=== PATIENT | female | born 1960 | race Caucasian/White ===

== ENCOUNTER → 2016-12-22 | Outpatient (CLI) | payer OTHER | END | disposition home or self-care (01) | LOC: WOUND 09:31 | PROVIDERS: ATTEND Podiatrist Foot & Ankle Surgery | DX: S91.105A Unspecified open wound of left lesser toe(s) without damage to nail, initial encounter (principal); T69.1XXA Chilblains, initial encounter; Z87.891 Personal history of nicotine dependence; Z85.3 Personal history of malignant neoplasm of breast; Z72.89 Other problems related to lifestyle; X31.XXXA Exposure to excessive natural cold, initial encounter; X58.XXXA Exposure to other specified factors, initial encounter; Y93.89 Activity, other specified; Y92.89 Other specified places as the place of occurrence of the external cause; Y99.8 Other external cause status | CPT/HCPCS: 99204 ==

== ENCOUNTER → 2017-01-05 | Outpatient (CLI) | payer OTHER | END | disposition home or self-care (01) | LOC: WOUND 09:32 | PROVIDERS: ATTEND Podiatrist Foot & Ankle Surgery | DX: T69.1XXD Chilblains, subsequent encounter (principal); M79.672 Pain in left foot; Z85.3 Personal history of malignant neoplasm of breast; Z87.891 Personal history of nicotine dependence; Z72.89 Other problems related to lifestyle; X31.XXXD Exposure to excessive natural cold, subsequent encounter | CPT/HCPCS: 99213 ==

== ENCOUNTER 2019-03-02 12:46 | Inpatient (IN) | payer OTHER ==
[~2019-03-02] VITALS: Ht 165.1 cm; Wt 95.2 kg
[2019-03-02] MEDS ORDERED: SODIUM CHLORIDE FLUSH 10ML SYR IVF ONE (13:00)
[2019-03-02 13:47] LABS: BASOPHILS % (AUTO) 0 % (0-1); EOSINOPHILS # (AUTO) 0.04 x10^3/uL (0-0.4); EOSINOPHILS % (AUTO) 1 % (1-7); LYMPHOCYTES # (AUTO) 1.09 x10^3/uL (1-3.4); LYMPHOCYTES % (AUTO) 15 % (22-44); MD NO; MEAN CORPUSCULAR HEMOGLOBIN 30.2 pg (27.0-34.8); MEAN CORPUSCULAR HGB CONC 32.8 g/dL (32.4-35.8); MEAN CORPUSCULAR VOLUME 92.1 fL (80-100); MEAN PLATELET VOLUME 7.3 fL (7.4-10.4); MONOCYTES # (AUTO) 0.34 x10^3/uL (0.2-0.8); MONOCYTES % (AUTO) 5 % (2-9); NEUTROPHILS # (AUTO) 5.77 x10^3/uL (1.8-6.8); NEUTROPHILS % (AUTO) 80 % (42-75); PLATELET COUNT 134 x10^3/uL (130-400); RED BLOOD COUNT 4.44 x10^6/uL (3.82-5.3)
[2019-03-02 14:00] LABS: ALANINE AMINOTRANSFERASE 98 U/L (12-78); ALBUMIN 3.9 g/dL (3.4-5.0); ANION GAP 5 mmol/L (5-15); CHLORIDE 99 mmol/L (98-107); CREATININE 0.61 mg/dL (0.55-1.02)
[2019-03-02 14:02] LABS: ALKALINE PHOSPHATASE 59 U/L (45-117); BILIRUBIN,TOTAL 1.5 mg/dL (0.2-1.0); TOTAL PROTEIN 7.4 g/dL (6.4-8.2)
--- NOTE | 2019-03-02 14:17 | NUR ---
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
[2019-03-02] MEDS ORDERED: KETOROLAC 30 MG/1 ML ONE (14:48)
--- NOTE | 2019-03-02 14:57 | NUR ---
PATIENT PRESENTS TO ED TODAY FOR CAT BITE TO LT HAND 3 DAYS AGO, ERYTHEMA STREAKS RADIATING UP PATIENTS LT UPPER EXT. IV ESTABLISHED, PAIN MEDICATIONS GIVEN, XRAY COMPLETED, AWAITING RESULTS, CALL LIGHT WITHIN REACH, NADN.
[2019-03-02] MEDS ORDERED: KETOROLAC 30 MG/1 ML IVPush ONE (15:00)
--- NOTE | 2019-03-02 15:17 | NUR ---
EMT COMPLETED VOLAR SPLINT, COST ACCOUNTANT INTACT, PATIENT SITTING IN [facility], AWAITING ADMIT ORDER AND BED ASSIGNMENT.
[2019-03-02] MEDS ORDERED: VANCOMYCIN PER PHARMACY MC PRN (15:30)
[2019-03-02] MEDS ORDERED: DOXYCYCLINE 100 MG in DEXTROSE 5% 250 ML IV SCH (15:30)
--- NOTE | 2019-03-02 15:56 | NUR ---
PATIENT SITTING COMFROTABLY IN [facility], UPDATED IN CHART, BLOOD CULTURES DRAWN X 2 PRIOR TO ABX ADMINISTRATION, 1ST ABX ADMINISTERED AT THIS TIME, NADN. ADMIT ORDER IN, AWAITING MED ASSIGNMENT, CALL LIGHT WITHIN REACH.
[2019-03-02] MEDS ORDERED: VANCOMYCIN 2,000 MG in SODIUM CHLORIDE 0.9% 500 ML IV ONE (16:00)
[2019-03-02] MEDS ORDERED: PHARMACOKINETIC CONSULTATION MC ONE (16:00)
[2019-03-02] MEDS ORDERED: PHARMACOKINETIC MONITORING MC PRN (16:00)
--- NOTE | 2019-03-02 16:21 | NUR ---
REPORT TO HEIDY SMITH. AWAITING TRANSPORT.
--- NOTE | 2019-03-02 16:44 | NUR ---
PATIENT BEING TRANSPORTED/ADMITTED TO HOSPITAL BED UPSTAIRS AT THIS TIME.
[2019-03-02] MEDS ORDERED: ACETAMINOPHEN 325 MG TABLET PO PRN (17:30)
[2019-03-02] MEDS ORDERED: METF-649 PO (17:35)
[2019-03-02] MEDS ORDERED: ZOLP5TAB6 PO (17:35)
[2019-03-02] MEDS ORDERED: CITA20TA6 PO (17:35)
[2019-03-02] MEDS ORDERED: ATOR20TA86 PO (17:35)
[2019-03-02 18:06] LABS: HCT (SEDRATE) 40.9 % (34.6-47.8)
[2019-03-02] MEDS: SODIUM CHLORIDE 0.9% 1,000 ML IV SCH ×2 (19:30→20:30)
[2019-03-02] MEDS: morphine SULFATE 10 MG/ML, 1ML IVPush PRN ×2 (19:31→20:33)
[2019-03-02] MEDS: AMPICILLIN/SULBACTAM 3 GM in SODIUM CHLORIDE 0.9% 100 ML IV SCH ×2 (19:33→20:34)
[2019-03-02] MEDS: ATORVASTATIN 40 MG TABLET PO SCH (20:33)
[2019-03-02 21:19] VITALS: BP 143/86
[2019-03-03 01:26] VITALS: BP 122/83
[2019-03-03] MEDS: AMPICILLIN/SULBACTAM 3 GM in SODIUM CHLORIDE 0.9% 100 ML IV SCH ×4 (01:33→19:27)
[2019-03-03] MEDS: SODIUM CHLORIDE 0.9% 1,000 ML IV SCH ×3 (03:45→22:14)
[2019-03-03 05:23] LABS: BASOPHILS # (AUTO) 0.01 x10^3/uL (0-0.1); BASOPHILS % (AUTO) 0 % (0-1); EOSINOPHILS # (AUTO) 0.07 x10^3/uL (0-0.4); EOSINOPHILS % (AUTO) 2 % (1-7); LYMPHOCYTES # (AUTO) 1.01 x10^3/uL (1-3.4); LYMPHOCYTES % (AUTO) 22 % (22-44); MD NO; MEAN CORPUSCULAR HEMOGLOBIN 30.8 pg (27.0-34.8); MEAN CORPUSCULAR VOLUME 93.4 fL (80-100); MEAN PLATELET VOLUME 8.1 fL (7.4-10.4); MONOCYTES # (AUTO) 0.26 x10^3/uL (0.2-0.8); MONOCYTES % (AUTO) 6 % (2-9); NEUTROPHILS # (AUTO) 3.31 x10^3/uL (1.8-6.8); NEUTROPHILS % (AUTO) 71 % (42-75); PLATELET COUNT 122 x10^3/uL (130-400); RED BLOOD COUNT 4.06 x10^6/uL (3.82-5.3); RED CELL DISTRIBUTION WIDTH 15.9 % (9.6-15.2)
[2019-03-03 05:32] LABS: ANION GAP 9 mmol/L (5-15); CALCIUM 8.7 mg/dL (8.5-10.1); CHLORIDE 105 mmol/L (98-107)
[2019-03-03 05:36] LABS: CHOL/HDL RATIO 2.7; CHOLESTEROL, TOTAL 149 mg/dL (140-239); CREATININE 0.45 mg/dL (0.55-1.02); HDL CHOL % 37 % (28-40); HDL CHOLESTEROL (DIRECT) 55 mg/dL (40-60); LDL CHOLESTEROL,CALCULATED 71 mg/dL (54-169); LDL/HDL RATIO 1.3 (0.5-3.0); TRIGLYCERIDES 117 mg/dL (50-200); VLDL CHOLESTEROL 23 mg/dL (0-25)
[2019-03-03 05:53] LABS: HEMOGLOBIN A1C 5.6 % (4.2-6.3)
[2019-03-03 07:33] VITALS: BP 129/91
[2019-03-03] MEDS: CITALOPRAM 20 MG TABLET PO SCH (08:21)
[2019-03-03] MEDS: metFORMIN 500 MG TABLET PO SCH ×2 (08:21→17:17)
[2019-03-03] MEDS ORDERED: ANAS1TAB PO (08:24)
[2019-03-03] MEDS: morphine SULFATE 10 MG/ML, 1ML IVPush PRN ×2 (10:49→17:32)
[2019-03-03 13:47] VITALS: BP 132/86
[2019-03-03 19:22] VITALS: BP 124/84
[2019-03-03] MEDS: DOCUSATE 100 MG CAPSULE PO SCH (20:29)
[2019-03-03] MEDS: ATORVASTATIN 40 MG TABLET PO SCH (20:29)
[2019-03-04] MEDS: AMPICILLIN/SULBACTAM 3 GM in SODIUM CHLORIDE 0.9% 100 ML IV SCH ×2 (01:26→07:56)
[2019-03-04 01:38] VITALS: BP 116/75
[2019-03-04] MEDS: SODIUM CHLORIDE 0.9% 1,000 ML IV SCH (05:09)
[2019-03-04 05:33] LABS: BASOPHILS # (AUTO) 0.02 x10^3/uL (0-0.1); BASOPHILS % (AUTO) 1 % (0-1); EOSINOPHILS # (AUTO) 0.12 x10^3/uL (0-0.4); EOSINOPHILS % (AUTO) 3 % (1-7); LYMPHOCYTES # (AUTO) 1.24 x10^3/uL (1-3.4); LYMPHOCYTES % (AUTO) 34 % (22-44); MD NO; MEAN CORPUSCULAR HGB CONC 32.9 g/dL (32.4-35.8); MEAN CORPUSCULAR VOLUME 94.3 fL (80-100); MEAN PLATELET VOLUME 7.9 fL (7.4-10.4); MONOCYTES # (AUTO) 0.27 x10^3/uL (0.2-0.8); MONOCYTES % (AUTO) 7 % (2-9); NEUTROPHILS % (AUTO) 55 % (42-75); PLATELET COUNT 144 x10^3/uL (130-400); RED BLOOD COUNT 4.02 x10^6/uL (3.82-5.3); RED CELL DISTRIBUTION WIDTH 15.6 % (9.6-15.2)
[2019-03-04 05:46] LABS: CHLORIDE 111 mmol/L (98-107)
[2019-03-04 05:56] LABS: ALANINE AMINOTRANSFERASE 65 U/L (12-78); ALBUMIN 2.9 g/dL (3.4-5.0); ALKALINE PHOSPHATASE 55 U/L (45-117); ANION GAP 8 mmol/L (5-15); BILIRUBIN,TOTAL 1.5 mg/dL (0.2-1.0); CALCIUM 8.4 mg/dL (8.5-10.1); CREATININE 0.49 mg/dL (0.55-1.02); TOTAL PROTEIN 6.4 g/dL (6.4-8.2)
[2019-03-04 06:34] VITALS: BP 135/87
[2019-03-04] MEDS: metFORMIN 500 MG TABLET PO SCH (07:56)
[2019-03-04] MEDS: DOCUSATE 100 MG CAPSULE PO SCH (07:56)
[2019-03-04] MEDS: CITALOPRAM 20 MG TABLET PO SCH (07:57)
[2019-03-04] MEDS ORDERED: LACT1CAP35 PO (08:56)
== END 2019-03-04 11:04 | disposition home or self-care (01) | DRG 603 ==
LOC: ED 14:59 → EDIP 16:58 → 3NE 17:21 → DCLOUNGE 03-04 10:42
PROVIDERS: ADMIT Internal Medicine; ATTEND Internal Medicine
DX: L03.114 Cellulitis of left upper limb (principal); E11.9 Type 2 diabetes mellitus without complications; E78.5 Hyperlipidemia, unspecified; C50.919 Malignant neoplasm of unspecified site of unspecified female breast; I89.1 Lymphangitis; K76.0 Fatty (change of) liver, not elsewhere classified; F41.9 Anxiety disorder, unspecified; R74.0 Nonspecific elevation of levels of transaminase and lactic acid dehydrogenase [LDH]; W55.01XA Bitten by cat, initial encounter; Z80.0 Family history of malignant neoplasm of digestive organs; Z82.5 Family history of asthma and other chronic lower respiratory diseases
CPT/HCPCS: 36415; 80048; 80053; 80061; 80074; 83036; 83605; 85025; 85651; 86140; 87040; 99285; G0378; J0295; J1885; J7060; J2270; J7030

== ENCOUNTER 2021-05-14 07:18 | Emergency (ER) | payer MEDICAID, OTHER ==
[~2021-05-14] VITALS: Ht 165.1 cm; Wt 116.7 kg
[~2021-05-14 07:18] MED LIST: ANAS1TAB PO; ATOR20TA86 PO; CITA20TA6 PO; LACT1CAP35 PO; METF-734 PO; ZOLP5TAB6 PO
--- NOTE | 2021-05-14 07:41 | NUR ---
POULTRY SCALDER: PT 86-90% RA, PLACED ON 2L W/ DESIRED EFFECT.
[2021-05-14 08:15] LABS: BASOPHILS % (AUTO) 1 % (0-1); EOSINOPHILS % (AUTO) 2 % (1-7); LYMPHOCYTES % (AUTO) 19 % (22-44); MEAN CORPUSCULAR HEMOGLOBIN 32.6 pg (27.0-34.8); MEAN CORPUSCULAR HGB CONC 32.2 g/dL (32.4-35.8); MEAN PLATELET VOLUME 7.6 fL (7.4-10.4); MONOCYTES % (AUTO) 9 % (2-9); NEUTROPHILS % (AUTO) 69 % (42-75); PLATELET COUNT 214 x10^3/uL (130-400); RED BLOOD COUNT 3.55 x10^6/uL (3.82-5.3); RED CELL DISTRIBUTION WIDTH 18.7 % (9.6-15.2)
[2021-05-14 08:26] LABS: ALANINE AMINOTRANSFERASE 36 U/L (12-78); ALBUMIN 3.3 g/dL (3.4-5.0); ANION GAP 5 mmol/L (5-15); CALCIUM 8.9 mg/dL (8.5-10.1); CHLORIDE 103 mmol/L (98-107); CREATININE 0.51 mg/dL (0.55-1.02)
[2021-05-14 08:27] LABS: D-DIMER 1.68 ug/mlFEU (0.00-0.52); INTERNATIONAL NORMALIZED RATIO 1.02 (0.93-1.1); PROTHROMBIN TIME 10.9 Seconds (9.6-11.5)
[2021-05-14] MEDS ORDERED: ASPI-963 PO (08:29)
[2021-05-14 08:30] VITALS: BP 129/79
[2021-05-14 08:30] LABS: ALKALINE PHOSPHATASE 107 U/L (45-117); BILIRUBIN,TOTAL 0.7 mg/dL (0.2-1.0); TROPONIN I 0.027 ng/mL (0.000-0.045)
--- NOTE | 2021-05-14 08:32 | NUR ---
PT. TO ED FOR EVAL OF BILAT LEG/ABD SWELLING X 4 WEEKS. SWELLING/REDNESS/PAIN TO BLE. SENT BY PCP. PT. DENIES ANY SOB/CP. US HAS BEEN COMPLETED. VSS. PT. DENIES NEEDS. ALL SAFETY MEASUERS OBSERVED.
--- NOTE | 2021-05-14 09:06 | NUR ---
BEDSIDE REPORT RECEIVED FROM HEIDY SNYDER. PT 94% RA. PT GETTING DRESSED.
--- NOTE | 2021-05-14 09:18 | NUR ---
PT BACK FROM CHEST X-RAY AT THIS TIME. WILL DC PT AFTER RESULTS OF STUDY ARE DISCUSSED WITH PT BY NAWAF FAULKNER.
== END 2021-05-14 09:48 | disposition home or self-care (01) ==
LOC: ED 09:40
DX: R60.0 Localized edema (principal); E11.9 Type 2 diabetes mellitus without complications; R94.31 Abnormal electrocardiogram [ECG] [EKG]; Z85.3 Personal history of malignant neoplasm of breast
CPT/HCPCS: 36415; 71045; 80053; 83880; 84484; 85025; 85379; 85610; 85730; 93005; 93970; 99285